=== PATIENT | male | born 1955 | race African-American/Black ===

== ENCOUNTER → 2018-06-17 | Outpatient (CLI) | payer MEDICARE ==
[~2018-06-17] MED LIST: BYSTOLIC10 MG PO; DEXILANT60 MG PO; GADOBENATE DIMEGLUMINE 1 ML IV ONE; HUMALOG100 UNIT/1 SC; LEVEMIR100 UNIT/1 SC; LISINOPRIL10 MG PO
[2018-06-17 11:46] LABS: BLOOD UREA NITROGEN 11 mg/dL (7-26); BUN/CREATININE RATIO 10 (6-25); EST GLOMERULAR FILTRATION RATE > 60 ML/MIN (60-)
--- NOTE | 2018-06-17 15:44 | Diagnostic Imaging Report ---
Bone Scan, delayed phase INDICATION: Prostate cancer diagnosed in 2017 COMPARISON: None available REPORT: Approximately 3 hours following intravenous administration of 27 mCi of Tc-99m MDP, delayed total body images in the anterior and posterior projections and selected spot images were obtained. Left hip prosthesis without associated increased tracer activity. Small round focal area of mildly increased tracer in the left 4th rib anteriorly. Otherwise, distribution of tracer activity is unremarkable throughout the skeletal system. No abnormal accumulation of tracer is seen in the soft tissues or urinary tract. IMPRESSION: 1. No scan evidence of metastatic bone disease. 2. Small mildly osteoblastic process in the left 4th rib anteriorly consistent with healed rib fracture. It does not have the typical intense osteoblastic activity of bone metastasis due to prostate cancer. Signed by: Dr. Lucy Deras M.D. on 06/17/2018 3:40 PM
--- NOTE | 2018-06-18 09:36 | Diagnostic Imaging Report ---
EXAM: MRI Pelvis WITHOUT and WITH Contrast INDICATION: ^PROSTATE CA COMPARISON: None. TECHNIQUE: Multiplanar and multisequence imaging was performed of the pelvis from below the inferior poles of the kidneys to the lesser trochanters without and with contrast. T1-weighted, T2-weighted images. Post gadolinium T1-weighted spoiled gradient echo scans. Routine protocol was performed. IV Contrast: 15 mL of MultiHance gadolinium Oral Contrast: None Medications: None COMPLICATIONS: None FINDINGS: Limited postcontrast sequence with blooming artifact from the left total hip arthroplasty extending involving 50% of the prostate and rectum. PROSTATE: Size of total gland: 4.4 x 4.9 x 3.6 cm. Total volume 40.4 cc. Transitional zone: 4.4 x 3.6 x 2.5 cm. Transitional zone volume 20.6 cc. BPH: Minimal, contained in the transitional zone. Median lobe: None Previous TURP: None Focal calcifications are difficult to visualize by MRI Central Gland: Mild BPH. Peripheral Zone: Diffuse mild low signal on T2-weighted sequence. No focal discrete areas of low T2 signal. No diffusion weighted sequences. BLADDER: Unremarkable. GI TRACT: No abnormal distention, wall thickening, or evidence of bowel obstruction. Appendix is not clearly identified. There is however no fat stranding or adenopathy in the right lower quadrant to suggest appendicitis. RECTUM: Rectum and mesorectum are unremarkable. LYMPH NODES: No lymphadenopathy. VESSELS: Unremarkable. PERITONEUM / RETROPERITONEUM: No free air or fluid. BONES: Left total hip arthroplasty SOFT TISSUES: 3.3 x 5.0 cm left gluteal intramuscular lipoma. Small right hydrocele. IMPRESSION: 1. No evidence of metastatic disease in the pelvis. 2. Prostate is grossly unremarkable. 3. However, the exam was not tailored for a prostate protocol with small [id number], thinner slices, diffusion-weighted sequences. Left hip arthroplasty resulted in blooming artifact covering half of the prostate and region of interest. Signed by: Dr. Marcus Kaur M.D. on 06/18/2018 9:33 AM
== END ==
LOC: NM 10:28
PROVIDERS: ATTEND Urology
DX: C61 Malignant neoplasm of prostate (principal)
CPT/HCPCS: 36415; 72197; 78306; 82565; 84520; A9503

== ENCOUNTER 2024-12-25 05:55 | Inpatient (IN) | payer MEDICARE ==
[2024-12-25] VITALS (12 sets, daily range): BP systolic 124–160; BP diastolic 72–101; PULSE 83–90; RESP 15–24; TEMP 96.4–97.8; O2SAT 96–100
[~2024-12-25] VITALS: Ht 165.1 cm; Wt 81.6 kg
[~2024-12-25 05:55] MED LIST changes: -GADOBENATE DIMEGLUMINE 1 ML IV ONE; +ONDANSETRON ODT4 MG PO
[2024-12-25 06:28] LABS: BASOPHILS % 0.3 % (0.0-1.0); EOSINOPHILS # (AUTO) 0.2 (0.0-0.4); EOSINOPHILS % 1.4 % (0.0-6.0); HEMATOCRIT 42.1 % (38.2-49.6); LYMPHOCYTES # (AUTO) 4.5 (1.0-3.2); LYMPHOCYTES % 35.1 % (18.0-39.1); MEAN CORPUSCULAR HEMOGLOBIN 30.1 pg (28-32); MEAN CORPUSCULAR HGB CONC 33.3 g/dL (31-35); MEAN CORPUSCULAR VOLUME 90.5 fL (81-99); MONOCYTES # (AUTO) 1.1 (0.2-0.8); MONOCYTES % 8.4 % (4.4-11.3); NEUTROPHILS # (AUTO) 6.9 (2.1-6.9); NEUTROPHILS % 54.5 % (38.7-80.0); PLATELET COUNT 321 x10e3/uL (140-360); RED BLOOD COUNT 4.65 x10e6/uL (4.3-5.7); RED CELL DISTRIBUTION WIDTH 14.1 % (11.7-14.4); WHITE BLOOD COUNT 12.67 x10e3/uL (4.8-10.8)
[2024-12-25 06:40] LABS: ALBUMIN 3.5 g/dL (3.5-5.0); ANION GAP 14.8 mmol/L (8-16); BILIRUBIN,TOTAL 0.5 mg/dL (0.2-1.2); CREATININE, SERUM 1.27 mg/dL (0.72-1.25); POTASSIUM 3.8 mmol/L (3.5-5.1); TOTAL PROTEIN 6.9 g/dL (6.5-8.1)
[2024-12-25 06:50] LABS: TROPONIN I 3.476 ng/mL (0-0.300)
[2024-12-25] MEDS: ASPIRIN 81 MG CHEW TAB PO ONE (06:59)
[2024-12-25] MEDS ORDERED: ONDANSETRON HCL INJ 2MG/ML 2ML 2 MG/ML VIAL IV PRN (07:00)
[2024-12-25] MEDS ORDERED: Morphine 4mg INJECTION 4 MG/ML INJ IV PRN (07:00)
[2024-12-25] MEDS ORDERED: ASPIRIN 81 MG CHEW TAB PO ONE (07:00)
[2024-12-25] MEDS: SODIUM CHLORIDE 0.9% 1000ML 1,000 ML IV STA (07:06)
[2024-12-25] MEDS ORDERED: METOPROLOL TARTRATE INJ 1 MG/ML VIAL IV PRN (07:15)
[2024-12-25] MEDS ORDERED: ALBUTEROL/IPRATROPIUM 3 ML NEB NEB PRN (07:15)
[2024-12-25] MEDS ORDERED: ACETAMINOPHEN 325 MG TAB PO PRN (07:15)
[2024-12-25] MEDS ORDERED: DEXTROSE 50% SYRINGE 50 ML IV PRN (07:15)
[2024-12-25] MEDS ORDERED: DOCUSATE SODIUM 100 MG CAP PO PRN (07:15)
[2024-12-25] MEDS ORDERED: SIMETHICONE 80 MG CHEW PO PRN (07:15)
[2024-12-25] MEDS ORDERED: MELATONIN 3 MG TAB PO PRN (07:15)
[2024-12-25] MEDS ORDERED: INSULIN REGULAR, HUMAN 100 UNIT/1 ML SQ SCH (07:30)
[2024-12-25] MEDS ORDERED: PANTOPRAZOLE SOD 40 MG TABEC PO SCH (07:30)
[2024-12-25] MEDS ORDERED: VERAPAMIL HCL 2.5 MG/ML 2 ML VIAL ONE (08:24)
[2024-12-25] MEDS ORDERED: HEPARIN SOD (PORCINE) 1000 UNIT/ML 30ML ONE (08:24)
[2024-12-25] MEDS ORDERED: IOPAMIDOL 370 MG/ML 100 ML INFUS..BTL INJ ONE (08:25)
[2024-12-25] MEDS ORDERED: NITROGLYCERIN/D5W 200 MCG/ML 0 ML ONE (08:25)
[2024-12-25] MEDS ORDERED: LIDOCAINE HCL 2% LOCAL 20 ML VIAL ONE (08:25)
[2024-12-25] MEDS ORDERED: HEPARIN SOD/SOD CHLORIDE 2,000 ML ONE (08:25)
[2024-12-25] MEDS ORDERED: MIDAZOLAM HCL 2 MG/2 ML VIAL ONE (08:26)
[2024-12-25] MEDS ORDERED: FENTANYL CITRATE/PF 100MCG/2 ML INJ ONE ×2 (08:26→08:30)
[2024-12-25 08:29] LABS: CHOL/HDL RATIO 2.6 (3.9-4.7)
[2024-12-25] MEDS ORDERED: HYDRALAZINE HCL 20 MG/ML VIAL ONE (08:45)
[2024-12-25] MEDS ORDERED: LISINOPRIL 20 MG TAB PO SCH (09:00)
[2024-12-25] MEDS ORDERED: NEBIVOLOL 10 MG TAB PO SCH (09:00)
[2024-12-25] MEDS ORDERED: ENOXAPARIN SOD INJ 40 MG/0.4 ML SYR SC SCH (17:00)
[2024-12-25] MEDS ORDERED: ATORVASTATIN 40 MG TAB PO SCH (21:00)
[2024-12-25] MEDS ORDERED: INSULIN GLARGINE 100 UNITS/ML VIAL SQ SCH (21:00)
[2024-12-26] MEDS ORDERED: ASPIRIN 325 MG TAB PO SCH (09:00)
[2024-12-26] MEDS ORDERED: LISINOPRIL 2.5 MG TAB PO SCH (09:00)
== END 2024-12-25 11:20 | disposition other institution (70) | DRG 280 ==
LOC: ER 06:22 → ERHOLD 06:58
PROVIDERS: ADMIT Internal Medicine; ATTEND Internal Medicine
PROC: 4A023N7 Measurement of Cardiac Sampling and Pressure, Left Heart, Percutaneous Approach (ICD-10-PCS; principal; 2024-12-25)
PROC: B2010ZZ Plain Radiography of Multiple Coronary Arteries using High Osmolar Contrast (ICD-10-PCS; 2024-12-25)
PROC: B2050ZZ Plain Radiography of Left Heart using High Osmolar Contrast (ICD-10-PCS; 2024-12-25)
DX: I21.4 Non-ST elevation (NSTEMI) myocardial infarction (principal); I50.21 Acute systolic (congestive) heart failure; F12.90 Cannabis use, unspecified, uncomplicated; E11.69 Type 2 diabetes mellitus with other specified complication; I11.0 Hypertensive heart disease with heart failure; K21.9 Gastro-esophageal reflux disease without esophagitis; E66.9 Obesity, unspecified; I25.10 Atherosclerotic heart disease of native coronary artery without angina pectoris; C61 Malignant neoplasm of prostate; Z79.4 Long term (current) use of insulin; Z72.0 Tobacco use; Z79.890 Hormone replacement therapy; Z83.3 Family history of diabetes mellitus; Z82.49 Family history of ischemic heart disease and other diseases of the circulatory system; Z68.30 Body mass index [BMI] 30.0-30.9, adult
CPT/HCPCS: 36415; 76937; 80053; 80061; 82550; 82948; 83036; 84484; 85025; 93005; 93306; 93458; 93880; 94799; 99152; 99282; C1766; C1887; J0360; J1644; J2003; J2250; J7030; Q9967